=== PATIENT | female | born 2000 | race Caucasian/White ===

== ENCOUNTER 2020-12-26 17:39 | Emergency (ER) | payer OTHER ==
[2020-12-26 17:48] VITALS: BP 121/69; PULSE 82; TEMP 97; BMI 21.4
[2020-12-26] MEDS ORDERED: FLUCONAZOLE 150 MG TABLET PO ONE ×2 (18:36→18:44)
[2020-12-26] MEDS ORDERED: IBUPROFEN 600 MG TABLET (FP) PO ONE ×2 (18:36→18:44)
[2020-12-26 18:42] LABS: EPI CELLS 22 /uL (0-25.1); HYALINE CASTS 1 /uL (0-3.1); URINE APPEARANCE CLEAR; URINE BACTERIA 744 /uL (0-1359); URINE BILIRUBIN NEGATIVE (NEGATIVE); URINE COLOR YELLOW; URINE GLUCOSE (UA) NEGATIVE (NEGATIVE); URINE KETONE NEGATIVE (NEGATIVE); URINE LEUK ESTERASE 1+ (NEGATIVE); URINE NITRITE NEGATIVE (NEGATIVE); URINE PROTEIN NEGATIVE (NEGATIVE); URINE RBC 4 /uL (0-23.9); URINE UROBILINOGEN 0.2 mg/dL (0.2-1.0); URINE WBC 7 /uL (0-25.8)
[2020-12-26 18:43] LABS: HCG,QUALITATIVE URINE Negative
== END 2020-12-26 19:05 | disposition home or self-care (01) ==
LOC: JER 17:39
DX: B37.3 Candidiasis of vulva and vagina (principal)
CPT/HCPCS: 36415; 81003; 84703; 87070; 87077; 87086; 87110; 87205; 87491; 87591; 87661; 99284-25

== ENCOUNTER 2022-06-08 15:21 | Emergency (ER) | payer OTHER ==
[2022-06-08 15:33] VITALS: BP 116/73; PULSE 69; RESP 18; TEMP 98.1; BMI 20.3
[2022-06-08 18:05] LABS: EOS % 0.9 % (0-4.5); HEMATOCRIT 42.2 % (32.4-45.2); HEMOGLOBIN 14.5 GM/dL (10.7-15.3); MCHC 34.4 g/dl (32.0-36.0); MEAN PLT VOLUME 9.6 fl (7.5-11.1); MONO % 21.4 % (3.8-10.2); NEUT % 42.7 % (42.8-82.8); PLATELET COUNT 231 10^3/uL (134-434); RBC 4.85 M/mm3 (3.60-5.2); RDW 12.7 % (11.6-15.6); WHITE BLOOD COUNT 11.1 K/mm3 (4.0-10.0)
[2022-06-08 18:20] LABS: CHLORIDE 103 mmol/L (98-107); SODIUM 133 mmol/L (136-145)
[2022-06-08 18:22] LABS: CALCIUM 9.6 mg/dL (8.5-10.1)
[2022-06-08 18:23] LABS: ALBUMIN 4.5 g/dl (3.4-5.0); BLOOD UREA NITROGEN 9.8 mg/dL (7-18); CO2 23 mmol/L (21-32); GLUCOSE,RANDOM 70 mg/dL (74-106)
[2022-06-08 18:26] LABS: CREATININE 0.8 mg/dL (0.55-1.3); SGOT/AST 74 U/L (15-37)
[2022-06-08 18:27] LABS: BILIRUBIN,TOTAL 0.4 mg/dL (0.2-1)
[2022-06-08 18:29] LABS: ALK PHOS 72 U/L (45-117); ANION GAP 8 MMOL/L (8-16); SGPT/ALT 23 U/L (13-61)
[2022-06-08 19:15] LABS: ANISOCYTOSIS 0; HELMET CELLS 0; HOWELL-JOLLY BODIES 0; MACROCYTOSIS 0; OVALOCYTE 0; ROULEAU 0; SICKELED CELLS 0; TARGET CELLS 0; TEAR DROP CELLS 0; TOXIC GRANULATION 0
[2022-06-08 20:01] LABS: PH,URINE 5.5 (5.0-8.0); URINE APPEARANCE CLEAR; URINE BILIRUBIN NEGATIVE (NEGATIVE); URINE COLOR YELLOW; URINE GLUCOSE (UA) NEGATIVE (NEGATIVE); URINE KETONE 3+ (NEGATIVE); URINE LEUK ESTERASE NEGATIVE (NEGATIVE); URINE NITRITE NEGATIVE (NEGATIVE); URINE PROTEIN TRACE (NEGATIVE); URINE UROBILINOGEN 0.2 mg/dL (0.2-1.0)
== END 2022-06-08 21:59 | disposition home or self-care (01) ==
LOC: JER 15:21
DX: O26.891 Other specified pregnancy related conditions, first trimester (principal); R10.9 Unspecified abdominal pain; Z3A.01 Less than 8 weeks gestation of pregnancy
CPT/HCPCS: 36415; 76817-TC; 80053; 81003; 84132; 84702; 84703; 85025; 86850; 86900; 86901; 87086; 99284-25

== ENCOUNTER 2022-06-10 12:10 | Emergency (ER) | payer OTHER ==
[2022-06-10 12:18] VITALS: BP 118/73; PULSE 79; RESP 18; TEMP 98; BMI 20.3
== END 2022-06-10 15:00 | disposition home or self-care (01) ==
LOC: JERFT 12:10 → JER 12:10 → JERFT 15:00
DX: Z3A.01 Less than 8 weeks gestation of pregnancy (principal)
CPT/HCPCS: 36415; 84702; 99283-25

== ENCOUNTER 2022-10-28 21:41 | Emergency (ER) | payer OTHER ==
[2022-10-28 21:47] VITALS: BP 109/71; PULSE 75; RESP 18; TEMP 97; BMI 19.5
[2022-10-28] MEDS ORDERED: SODIUM CHLORIDE 0.9% 500 ML INFUS.BAG IV ONE (23:19)
[2022-10-28] MEDS ORDERED: ONDANSETRON 4 MG/2 ML VIAL IVPUSH ONE (23:23)
[2022-10-28] MEDS ORDERED: ONDANSETRON 4 MG/2 ML VIAL ONE (23:32)
[2022-10-29 00:26] LABS: BASO % 0.3 % (0-2.0); EOS % 1.6 % (0-4.5); HCG,QUALITATIVE URINE Positive; HEMATOCRIT 34.4 % (32.4-45.2); HEMOGLOBIN 11.4 GM/dL (10.7-15.3); LYMPH % 16.6 % (8-40); MCH 29.3 pg (25.7-33.7); MCHC 33.1 g/dl (32.0-36.0); MEAN CELL VOLUME 88.7 fl (80-96); MEAN PLT VOLUME 8.5 fl (7.5-11.1); MONO % 10.4 % (3.8-10.2); NEUT % 71.1 % (42.8-82.8); PLATELET COUNT 241 10^3/uL (134-434); RBC 3.88 M/mm3 (3.60-5.2); RDW 13.7 % (11.6-15.6); WHITE BLOOD COUNT 13.1 K/mm3 (4.0-10.0)
[2022-10-29 00:27] LABS: PH,URINE 5.5 (5.0-8.0); URINE APPEARANCE CLEAR; URINE BILIRUBIN NEGATIVE (NEGATIVE); URINE COLOR YELLOW; URINE GLUCOSE (UA) NEGATIVE (NEGATIVE); URINE KETONE NEGATIVE (NEGATIVE); URINE LEUK ESTERASE NEGATIVE (NEGATIVE); URINE NITRITE NEGATIVE (NEGATIVE); URINE PROTEIN NEGATIVE (NEGATIVE); URINE UROBILINOGEN 0.2 mg/dL (0.2-1.0)
[2022-10-29 00:47] LABS: CALCIUM 9.2 mg/dL (8.5-10.1)
[2022-10-29 00:48] LABS: ALBUMIN 3.2 g/dl (3.4-5.0); BLOOD UREA NITROGEN 7.4 mg/dL (7-18)
[2022-10-29 00:51] LABS: CREATININE 0.5 mg/dL (0.55-1.3)
[2022-10-29 00:52] LABS: BILIRUBIN,TOTAL 0.2 mg/dL (0.2-1)
[2022-10-29 00:53] LABS: TOT PROT 7.1 g/dl (6.4-8.2)
[2022-10-29] MEDS ORDERED: DEXTROSE 5%-NORMAL SALINE 1,000 ML IV SCH (02:30)
== END 2022-10-29 03:06 | disposition home or self-care (01) ==
LOC: JER 21:41
PROC: 3E033GC Introduction of Other Therapeutic Substance into Peripheral Vein, Percutaneous Approach (ICD-10-PCS; principal; 2022-10-28)
DX: O26.892 Other specified pregnancy related conditions, second trimester (principal); R42 Dizziness and giddiness; Z3A.24 24 weeks gestation of pregnancy
CPT/HCPCS: 36415; 76801-TC; 80053; 81003; 84484; 84703; 85025; 87086; 93005; 93010; 99285-25

== ENCOUNTER 2023-10-02 12:11 | Emergency (ER) | payer OTHER ==
[2023-10-02 13:35] VITALS: BP 109/65; PULSE 90; RESP 18; BMI 21.1
[2023-10-02] MEDS ORDERED: ALBUTEROL SO4 2.5/IPRATROPIUM 0.5 INH SOL 3 ML VIAL.NEB. NEB ONE ×2 (14:18→14:32)
[2023-10-02 14:47] VITALS: TEMP 100.1
[2023-10-02 15:03] LABS: BASO % 0.3 % (0-2.0); EOS % 0.9 % (0-4.5); HEMATOCRIT 37.8 % (32.4-45.2); HEMOGLOBIN 12.1 GM/dL (10.7-15.3); MCH 26.1 pg (25.7-33.7); MCHC 31.9 g/dl (32.0-36.0); MEAN CELL VOLUME 81.8 fl (80-96); MEAN PLT VOLUME 8.7 fl (7.5-11.1); MONO % 6.6 % (3.8-10.2); NEUT % 88.2 % (42.8-82.8); PLATELET COUNT 270 10^3/uL (134-434); RBC 4.63 M/mm3 (3.60-5.2); RDW 15.4 % (11.6-15.6); WHITE BLOOD COUNT 12.3 K/mm3 (4.0-10.0)
[2023-10-02 15:17] LABS: PH,URINE 6.5 (5.0-8.0); URINE APPEARANCE CLEAR; URINE BILIRUBIN NEGATIVE (NEGATIVE); URINE COLOR YELLOW; URINE GLUCOSE (UA) NEGATIVE (NEGATIVE); URINE KETONE NEGATIVE (NEGATIVE); URINE LEUK ESTERASE NEGATIVE (NEGATIVE); URINE NITRITE NEGATIVE (NEGATIVE); URINE PROTEIN NEGATIVE (NEGATIVE)
[2023-10-02] MEDS ORDERED: ACETAMINOPHEN 500 MG TABLET (FP) PO ONE (15:36)
[2023-10-02] MEDS ORDERED: ACETAMINOPHEN 325 MG TABLET (FP) ONE (16:02)
== END 2023-10-02 17:00 | disposition home or self-care (01) ==
LOC: JER 12:11
PROC: 3E0F7GC Introduction of Other Therapeutic Substance into Respiratory Tract, Via Natural or Artificial Opening (ICD-10-PCS; principal; 2023-10-02)
DX: R07.9 Chest pain, unspecified (principal); R05.9 Cough, unspecified; R50.9 Fever, unspecified; M79.10 Myalgia, unspecified site; R09.81 Nasal congestion; J20.9 Acute bronchitis, unspecified; J45.909 Unspecified asthma, uncomplicated; Z20.822 Contact with and (suspected) exposure to COVID-19
CPT/HCPCS: 0241U-QW; 36415; 71046-TC-FY; 81003; 84703; 85025; 85379; 87086; 99284-25

== ENCOUNTER 2024-01-17 05:06 | Emergency (ER) | payer OTHER ==
[2024-01-17 05:23] VITALS: BP 110/70; RESP 20; TEMP 99.4; BMI 22.1
[2024-01-17] MEDS ORDERED: ONDANSETRON 4 MG/2 ML VIAL ONE (05:58)
[2024-01-17] MEDS ORDERED: ACETAMINOPHEN INJECTION 100 ML IVPB ONE (05:58)
[2024-01-17] MEDS ORDERED: FAMOTIDINE 20 MG/50 ML IVPB 20 MG/50 ML MG IVPB ONE (05:59)
[2024-01-17] MEDS: SODIUM CHLORIDE 0.9% 500 ML INFUS.BAG IV ONE (06:13)
[2024-01-17] MEDS: ACETAMINOPHEN 1000 MG/100 ML BAG IVPB ONE (06:13)
[2024-01-17] MEDS: FAMOTIDINE 20 MG/50 ML IVPB 20 MG/50 ML MG IVPB ONE (06:13)
[2024-01-17] MEDS: ONDANSETRON 4 MG/2 ML VIAL IVPUSH ONE (06:14)
[2024-01-17 06:36] LABS: BASO % 0.3 % (0-2.0); EOS % 0.4 % (0-4.5); HEMATOCRIT 41.6 % (32.4-45.2); HEMOGLOBIN 13.7 GM/dL (10.7-15.3); MCH 27.7 pg (25.7-33.7); MEAN PLT VOLUME 9.2 fl (7.5-11.1); MONO % 5.8 % (3.8-10.2); NEUT % 81.5 % (42.8-82.8); PLATELET COUNT 274 10^3/uL (134-434); RBC 4.96 M/mm3 (3.60-5.2); RDW 16.1 % (11.6-15.6); WHITE BLOOD COUNT 10.6 K/mm3 (4.0-10.0)
[2024-01-17 07:05] LABS: POTASSIUM 3.7 mmol/L (3.5-5.1)
[2024-01-17 07:07] LABS: CALCIUM 9.6 mg/dL (8.5-10.1)
[2024-01-17 07:08] LABS: ALBUMIN 4.3 g/dl (3.4-5.0); BLOOD UREA NITROGEN 13.6 mg/dL (7-18)
[2024-01-17 07:11] LABS: CREATININE 0.9 mg/dL (0.55-1.3)
[2024-01-17 07:12] LABS: BILIRUBIN,TOTAL 0.7 mg/dL (0.2-1); TOT PROT 8.7 g/dl (6.4-8.2)
[2024-01-17 08:11] VITALS: PULSE 69
== END 2024-01-17 08:35 | disposition home or self-care (01) ==
LOC: JER 05:06
PROC: 3E033GC Introduction of Other Therapeutic Substance into Peripheral Vein, Percutaneous Approach (ICD-10-PCS; principal; 2024-01-17)
PROC: 3E033GC Introduction of Other Therapeutic Substance into Peripheral Vein, Percutaneous Approach (ICD-10-PCS; 2024-01-17)
PROC: 3E033NZ Introduction of Analgesics, Hypnotics, Sedatives into Peripheral Vein, Percutaneous Approach (ICD-10-PCS; 2024-01-17)
DX: R11.2 Nausea with vomiting, unspecified (principal); R10.9 Unspecified abdominal pain; Z20.822 Contact with and (suspected) exposure to COVID-19
CPT/HCPCS: 0241U-QW; 36415; 80053; 83690; 84703; 85025; 99284-25; J0131

== ENCOUNTER 2024-07-28 09:16 | Emergency (ER) | payer OTHER ==
[2024-07-28 09:32] VITALS: BP 117/74; PULSE 86; RESP 18; TEMP 98.4; BMI 21.9
== END 2024-07-28 09:55 | disposition home or self-care (01) ==
LOC: JER 09:16
DX: R09.81 Nasal congestion (principal); R09.82 Postnasal drip; R11.10 Vomiting, unspecified
CPT/HCPCS: 99283-25